=== PATIENT | male | born 1980 | race Caucasian/White ===

== ENCOUNTER 2016-12-20 15:31 | Emergency (ER) | payer BC ==
[~2016-12-20] VITALS: Ht 175.3 cm; Wt 78.5 kg
[~2016-12-20 15:31] MED LIST: IBUP-2213 PO; SUL500 PO; TRAM50TA94 PO
[2016-12-20 15:34] VITALS: BP 122/66
--- NOTE | 2016-12-20 15:45 | NUR ---
PATIENT PRESENTS TO ED WITH C/O ABSCESS ON PELVIC AREA x 2 DAYS.PT STATES HE SHAVED HIS PRIVATE AREA AND STARTED TO HAVE SOME ABSCESS ON IT.DENIES N/V/D; SKIN IS PINK/WARM/DRY; AAOX4 WITH EVEN AND STEADY GAIT; LUNGS CLEAR BL; HR EVEN AND REGULAR; PT DENIES ANY FEVER, CP, SOB, OR COUGH AT THIS TIME; PATIENT STATES PAIN OF 8/10 AT THIS TIME;PATIENT POSITIONED FOR COMFORT; HOB ELEVATED; BEDRAILS UP X2; BED DOWN. ER MD MADE AWARE OF PT STATUS.
--- NOTE | 2016-12-20 15:55 | NUR ---
ER AT BEDSIDE
[2016-12-20] MEDS: LIDOCAINE 1% 500 MG/50 ML VIAL INJ ONE (16:34)
[2016-12-20 16:45] VITALS: BP 116/72
--- NOTE | 2016-12-20 16:45 | NUR ---
Patient discharged with v/s stable. Written and verbal after care instructions given and explained. Patient alert, oriented and verbalized understanding of instructions. Ambulatory with steady gait. All questions addressed prior to discharge. ID band removed. Patient advised to follow up with PMD. Rx of MOTRIN,NORCO,BACTRIM AND KEFLEX. given. Patient educated on indication of medication including possible reaction and side effects. Opportunity to ask questions provided and answered.
== END 2016-12-20 16:45 | disposition home or self-care (01) ==
LOC: MED 15:31
DX: L02.214 Cutaneous abscess of groin (principal); Z88.2 Allergy status to sulfonamides; Z88.8 Allergy status to other drugs, medicaments and biological substances; Z79.899 Other long term (current) drug therapy
CPT/HCPCS: 10060; 99283; J2001

== ENCOUNTER 2018-10-10 03:52 | Emergency (ER) | payer BC ==
[~2018-10-10] VITALS: Ht 175.3 cm; Wt 81.2 kg
[~2018-10-10 03:52] MED LIST changes: +TRAM50TA1 PO; -TRAM50TA94 PO
[2018-10-10 03:59] VITALS: BP 143/88
--- NOTE | 2018-10-10 04:03 | NUR ---
38 y/o m presents to the ed w/c/o cough since sat. pt denies pain at this time. denies sob. denies chest pain. pt states he did have a sore throat. lung sounds clear bilat. rr even/unlabored. skin warm and dry to touch. pt aaox4, gcs 15.
--- NOTE | 2018-10-10 04:06 | NUR ---
DR. SEE BEDSIDE EVALUATING PT
--- NOTE | 2018-10-10 04:13 | NUR ---
Patient discharged with v/s stable. Written and verbal after care instructions given and explained. Patient alert, oriented and verbalized understanding of instructions. Ambulatory with steady gait. All questions addressed prior to discharge. ID band removed. Patient advised to follow up with PMD. Rx of Motrin and Prednisone given. Patient educated on indication of medication including possible reaction and side effects. Opportunity to ask questions provided and answered.
== END 2018-10-10 04:13 | disposition home or self-care (01) ==
LOC: MED 03:52
DX: R05 Cough (principal); R07.89 Other chest pain
CPT/HCPCS: 99283

== ENCOUNTER 2018-11-17 05:54 | Emergency (ER) | payer BC ==
[~2018-11-17] VITALS: Ht 180.3 cm; Wt 81.2 kg
[2018-11-17 06:02] VITALS: BP 120/67
[2018-11-17] MEDS ORDERED: ACETAMINOPHEN 325 MG TAB PO ONE (06:05)
--- NOTE | 2018-11-17 06:06 | NUR ---
PT TAKEN TO BED 11
--- NOTE | 2018-11-17 06:07 | NUR ---
PT CAME INTO ER DUE TO COUGH AND INTERMITTENT FEVER SINCE 11/13/18. PT TOOK IBUPROFEN TO ALLEVIATE SYMPTOMS SINCE FRIDAY. STATES HE EXPERIENCED THESE SYMPTOMS ABOUT 3 MONTHS AGO AND PRESCRIBED PREDNISONE BUT DID NOT HELP. CURRENT TEMP AT 101.4. A/O X4. ABLE TO MAKE NEEDS KNOWN. ROOM AIR. NO SIGNS OF RESP DISTRESS. SKIN IS INTACT. SAFETY PREC IN PLACE. AT BEDSIDE.
[2018-11-17] MEDS ORDERED: ACETAMINOPHEN EXTRA STRENGTH 500 MG TAB ONE (06:18)
--- NOTE | 2018-11-17 06:20 | NUR ---
FLU SWAB WAS COLLECTED AND SENT TO LAB
--- NOTE | 2018-11-17 06:25 | NUR ---
FLU SWAB COLLECTED
[2018-11-17] MEDS ORDERED: OSELTAMIVIR PHOSPHATE 75 MG CAP PO ONE (06:55)
--- NOTE | 2018-11-17 07:24 | NUR ---
Patient discharged with v/s stable. Written and verbal after care instructions given and explained. Patient alert, oriented and verbalized understanding of instructions. Ambulatory with steady gait. All questions addressed prior to discharge. ID band removed. Patient advised to follow up with PMD. Rx of TAMIFLU/ PROMETHAZINE W CODEINE given. Patient educated on indication of medication including possible reaction and side effects. Opportunity to ask questions provided and answered.
[2018-11-17 07:25] VITALS: BP 127/71
== END 2018-11-17 07:24 | disposition home or self-care (01) ==
LOC: MED 05:54
DX: J10.1 Influenza due to other identified influenza virus with other respiratory manifestations (principal); R19.7 Diarrhea, unspecified; R11.10 Vomiting, unspecified
CPT/HCPCS: 71045; 87804; 99284; Q0092